=== PATIENT | male | born 1995 | race Caucasian/White ===

== ENCOUNTER 2018-01-23 07:56 | Emergency (ER) | payer MEDICAID ==
[~2018-01-23] VITALS: Ht 180.3 cm; Wt 121.3 kg
[2018-01-23 08:00] VITALS: BP 123/91
[2018-01-23 08:46] VITALS: BP 119/68
== END 2018-01-23 08:46 | disposition home or self-care (01) ==
LOC: MED 07:56
DX: K59.4 Anal spasm (principal); K64.9 Unspecified hemorrhoids
CPT/HCPCS: 81002; 99283

== ENCOUNTER 2018-11-21 11:30 | Emergency (ER) | payer MEDICAID ==
[~2018-11-21] VITALS: Ht 180.3 cm; Wt 122.5 kg
[2018-11-21 11:45] VITALS: BP 98/60
--- NOTE | 2018-11-21 12:17 | NUR ---
PT AMB TO BED 8
--- NOTE | 2018-11-21 12:26 | NUR ---
23 Y M BIB GIRL FRIEND C/O BLEEDING PER RECTUM X 2 DAYS AND DIARRHEA YESTERDAY BUT NO COMPLAINTS OF DIARRHEA TODAY. 6/10 PAIN. DENIES N/V. DENIES FEVER. BOWEL SOUNDS ACTIVE IN ALL 4 QUADRANTS. AB IS SOFT AND ROUND. LAST BM TODAY. AA0X4. VSS AT THIS TIME. BED IS DOWN, LOCKED, BED RAIL X 1, ERMD NOTIFIED OF PATIENT STATUS. HX: HEMORRHOIDS MED: NONE
--- NOTE | 2018-11-21 13:31 | NUR ---
DR YAP AT BEDSIDE
[2018-11-21 14:14] VITALS: BP 105/62
--- NOTE | 2018-11-21 14:16 | NUR ---
Patient discharged with v/s stable. Written and verbal after care instructions given and explained. Patient alert, oriented and verbalized understanding of instructions. Ambulatory with steady gait. All questions addressed prior to discharge. ID band removed. Patient advised to follow up with PMD. Rx of ANUSOL given. Patient educated on indication of medication including possible reaction and side effects. Opportunity to ask questions provided and answered.
== END 2018-11-21 14:16 | disposition home or self-care (01) ==
LOC: MED 11:30
DX: K60.2 Anal fissure, unspecified (principal); F17.200 Nicotine dependence, unspecified, uncomplicated
CPT/HCPCS: 81002; 99283

== ENCOUNTER 2019-06-03 07:06 | Emergency (ER) | payer MEDICAID ==
[~2019-06-03] VITALS: Ht 180.3 cm; Wt 111.1 kg
[2019-06-03 07:25] VITALS: BP 141/75
[2019-06-03] MEDS ORDERED: KETOROLAC 30 MG/ML VIAL IVP ONE (09:10)
[2019-06-03] MEDS ORDERED: NACL 0.9% 1,000 ML IV ONE (09:10)
[2019-06-03] MEDS ORDERED: ONDANSETRON 4 MG/2 ML VIAL IVP ONE (09:10)
[2019-06-03 09:35] LABS: BASOPHILS % (AUTO) 0.3 % (0.0-2.0); EOSINOPHILS % (AUTO) 0.3 % (0.0-4.0); HEMATOCRIT 47.7 % (36-52); LYMPHOCYTES # (AUTO) 1.1 K/uL (2.0-11.5); LYMPHOCYTES % (AUTO) 12.1 % (20.5-51.1); MEAN CORPUSCULAR HEMOGLOBIN 30 pg (27-31); MEAN CORPUSCULAR HGB CONC 34 g/dL (33-37); MEAN CORPUSCULAR VOLUME 89.3 fL (80-94); MONOCYTES # (AUTO) 0.7 K/uL (0.8-1.0); MONOCYTES % (AUTO) 7.7 % (1.7-9.3); NEUTROPHILS # (AUTO) 7.3 K/uL (1.8-7.7); NEUTROPHILS % (AUTO) 79.6 % (42.2-75.2); PLATELET COUNT (AUTO) 261 K/uL (140-450); RED BLOOD CELL COUNT(AUTO) 5.34 MIL/uL (4.20-6.10); RED CELL DISTRIBUTION WIDTH 12.8 % (11.6-13.7); WHITE BLOOD COUNT (AUTO) 9.2 K/uL (4.8-10.8)
[2019-06-03 10:20] LABS: ANION GAP 15.5 (8-16); CARBON DIOXIDE 26.2 mmol/L (21-32); POTASSIUM 3.7 mmol/L (3.5-5.1)
[2019-06-03 10:26] LABS: TOTAL BILIRUBIN 0.6 mg/dL (0.0-1.0)
[2019-06-03 11:25] VITALS: BP 121/60
== END 2019-06-03 11:25 | disposition home or self-care (01) ==
LOC: MED 07:06
DX: K31.84 Gastroparesis (principal); F12.90 Cannabis use, unspecified, uncomplicated
CPT/HCPCS: 36415; 80053; 83690; 85025; 99284; J1885; J2405; J7030

== ENCOUNTER 2020-01-04 16:39 | Emergency (ER) | payer MEDICAID ==
[~2020-01-04] VITALS: Ht 180.3 cm; Wt 99.8 kg
[2020-01-04 17:10] VITALS: BP 129/83
--- NOTE | 2020-01-04 17:16 | NUR ---
WAIT AT LOBBY.
--- NOTE | 2020-01-04 18:00 | NUR ---
PT AMB TO BED 4
--- NOTE | 2020-01-04 18:09 | NUR ---
C/O LUQ ABDOMINAL PAIN ,VOMITING, BLOOD IN STOOL X 1 YEAR. PT AWAKE , ALERT, AFIBRILE , AMBULATORY , ROUND SOFT ABDOMEN. MED HX: LOWER CHRONIC BACK PAIN, GASTROPARESIS
[2020-01-04] MEDS ORDERED: NACL 0.9% 1,000 ML IV SCH (18:24)
[2020-01-04] MEDS ORDERED: ONDANSETRON 4 MG/2 ML VIAL IVP ONE (18:25)
[2020-01-04] MEDS ORDERED: MORPHINE SULFATE 4 MG/ML SYR IVP ONE (18:35)
--- NOTE | 2020-01-04 18:45 | NUR ---
BOBBY PIZARRO ADMINISTERED MEDS AND INSERTED IV NEEDLE.
--- NOTE | 2020-01-04 18:48 | NUR ---
DR WINTER AT BEDSIDE EVALUATING PT.
--- NOTE | 2020-01-04 19:07 | NUR ---
RECIEVED REPORT FROM DANNIE ROSALES. TRANSFER OF CARE AT THIS TIME.
--- NOTE | 2020-01-04 19:24 | NUR ---
pt resting in bed comfortbaly. safety measures in place. pt says his pain is now 0/10.
[2020-01-04 20:20] LABS: BASOPHILS # (AUTO) 0.1 K/uL (0.00-0.22); BASOPHILS % (AUTO) 0.5 % (0.0-2.0); HEMATOCRIT 45.7 % (36-52); HEMOGLOBIN 15.5 g/dL (12.0-18.0); LYMPHOCYTES # (AUTO) 0.8 K/uL (2.0-11.5); LYMPHOCYTES % (AUTO) 6.9 % (20.5-51.1); MEAN CORPUSCULAR HEMOGLOBIN 30 pg (27-31); MEAN CORPUSCULAR HGB CONC 34 g/dL (33-37); MEAN CORPUSCULAR VOLUME 89.2 fL (80-94); MONOCYTES # (AUTO) 0.5 K/uL (0.8-1.0); MONOCYTES % (AUTO) 4.1 % (1.7-9.3); NEUTROPHILS # (AUTO) 10.7 K/uL (1.8-7.7); NEUTROPHILS % (AUTO) 88.5 % (42.2-75.2); PLATELET COUNT (AUTO) 292 K/uL (140-450); RED BLOOD CELL COUNT(AUTO) 5.13 MIL/uL (4.20-6.10); WHITE BLOOD COUNT (AUTO) 12.1 K/uL (4.8-10.8)
[2020-01-04 20:39] LABS: ALBUMIN 4.7 g/dL (3.4-5.0); ANION GAP 17.6 (8-16); CARBON DIOXIDE 24.4 mmol/L (21-32); CREATININE 1.3 mg/dL (0.6-1.3); TOTAL BILIRUBIN 0.5 mg/dL (0.0-1.0)
[2020-01-04] MEDS ORDERED: HALOPERIDOL IM 5 MG/ML VIAL IM ONE (20:40)
[2020-01-04] MEDS ORDERED: diphenhydrAMINE 50 MG/ML VIAL IVP ONE (20:40)
[2020-01-04] MEDS ORDERED: PANTOPRAZOLE 40 MG INJ VIAL IVP ONE (20:45)
[2020-01-04] MEDS ORDERED: POTASSIUM CHLORIDE 10 MEQ TABER PO ONE (21:05)
[2020-01-04 21:33] VITALS: BP 111/70
[2020-01-05 00:41] LABS: APPEARANCE,URINE CLEAR (CLEAR); BILIRUBIN,URINE 1+ (NEGATIVE); BLOOD, URINE NEGATIVE (NEGATIVE); COLOR,URINE YELLOW (YELLOW); LEUKOCYTE ESTERASE ,URINE NEGATIVE (NEGATIVE); NITRITE, URINE NEGATIVE (NEGATIVE); UGLUCOSE NEGATIVE (NEGATIVE)
[2020-01-05 00:54] LABS: RBC,URINE 0-5 /HPF (0-5); WBC,URINE 0-5 /HPF (0-5)
[2020-01-05 00:55] LABS: CALCIUM OXALATE CRYSTALS,UR 0-10 /HPF (None Seen)
== END 2020-01-04 21:33 | disposition home or self-care (01) ==
LOC: MED 16:39
DX: R11.2 Nausea with vomiting, unspecified (principal); K62.5 Hemorrhage of anus and rectum; F12.10 Cannabis abuse, uncomplicated
CPT/HCPCS: 36415; 80053; 81001; 82150; 83690; 85025; 86886; 86900; 86901; 96361; 96372; 96374; 96375; 99284; C9113; J1200; J1630; J2270; J2405; J7030

== ENCOUNTER 2022-04-20 15:17 | Emergency (ER) | payer MEDICAID ==
[~2022-04-20] VITALS: Ht 177.8 cm; Wt 93.9 kg
[2022-04-20 15:29] VITALS: BP 131/102
--- NOTE | 2022-04-20 15:35 | NUR ---
PT AMBULATED TO BED 5
--- NOTE | 2022-04-20 15:58 | NUR ---
26YO MALE PT C/O PRESSURED 10/10 MID ABDOMINAL PAIN XTHIS MORNING. PT REPORTS SUDDEN CONSTANT PAIN ALONG W/ N/V/D AND CHILLS. UNABLE TO COUNT XVOMIT , DENIES BLOOD IN V/D. UPON ARRIVAL PT DIAPHORETIC AND NAUSEOUS W/ACTIVE HACKIING. PT HAS HX OF GASTROPARESIS AND STATES SIMILIAR SYMPTOMS. STATES NO RELIEF AFTER TAKING PANTOPRAZOLE. ABDOMEN NON DISTENDED OR TENDER, ACTIVE X4. PT AAOX4, IN VISIBLE DISTRESS AND RESTLESS. HOB POSITIONED PER COMFORT, BED AT LOWEST POSITION W/ BED RAILS UP X2. HX: GASTROPARESIS NKA
[2022-04-20] MEDS ORDERED: HALOPERIDOL IM 5 MG/ML VIAL IM ONE (16:05)
[2022-04-20] MEDS ORDERED: NACL 0.9% 1,000 ML IV ONE (16:05)
[2022-04-20 16:18] LABS: BASOPHILS % (AUTO) 0.1 % (0.0-2.0); EOSINOPHILS % (AUTO) 0.3 % (0.0-4.0); HEMATOCRIT 41.5 % (36-52); HEMOGLOBIN 13.6 g/dL (12.0-18.0); LYMPHOCYTES # (AUTO) 0.6 K/uL (2.0-11.5); LYMPHOCYTES % (AUTO) 3.7 % (20.5-51.1); MEAN CORPUSCULAR HEMOGLOBIN 28 pg (27-31); MEAN CORPUSCULAR HGB CONC 33 g/dL (33-37); MONOCYTES # (AUTO) 0.7 K/uL (0.8-1.0); MONOCYTES % (AUTO) 4.3 % (1.7-9.3); NEUTROPHILS # (AUTO) 15.8 K/uL (1.8-7.7); NEUTROPHILS % (AUTO) 91.6 % (42.2-75.2); PLATELET COUNT (AUTO) 365 K/uL (140-450); RED BLOOD CELL COUNT(AUTO) 4.89 MIL/uL (4.20-6.10); RED CELL DISTRIBUTION WIDTH 14.9 % (11.6-13.7); WHITE BLOOD COUNT (AUTO) 17.2 K/uL (4.8-10.8)
[2022-04-20 16:30] LABS: ANION GAP 18.4 (8-16); CARBON DIOXIDE 22.3 mmol/L (21-32); CREATININE 1.5 mg/dL (0.6-1.3); POTASSIUM 3.7 mmol/L (3.5-5.1)
[2022-04-20 17:52] VITALS: BP 122/71
--- NOTE | 2022-04-20 17:52 | NUR ---
Patient discharged with v/s stable. Written and verbal after care instructions FOR ACUTE KIDNEY INJURY AND CYCLIC VOMIT SYDROME given and explained. Patient verbalized understanding. Ambulatory with steady gait. All questions addressed prior to discharge. Advised to follow up with PMD.
--- NOTE | 2022-04-20 17:55 | NUR ---
The patient's care was reviewed and supervised by Yann Rodriguez RN.
== END 2022-04-20 17:52 | disposition home or self-care (01) ==
LOC: MED 15:17
DX: K31.84 Gastroparesis (principal); R11.15 Cyclical vomiting syndrome unrelated to migraine
CPT/HCPCS: 36415; 80053; 83690; 85025; 96360; 96361; 96372; 99283; J1630; J7030